=== PATIENT | female | born 1945 ===

== ENCOUNTER 2017-02-14 08:11 | Emergency (ER) | payer MEDICARE, OTHER ==
[2017-02-14 08:18] VITALS: BP 139/83; PULSE 82; TEMP 97; O2SAT 96
[2017-02-14 08:19] VITALS: BMI 31.8
[2017-02-14 08:35] VITALS: RESP 18
[2017-02-14] MEDS ORDERED: Albuterol 0.083% Inhal Sol (2.5 mg/3 mL) UD INH STA (08:55)
--- NOTE | 2017-02-14 08:58 | ED PDOC ---
HPI: CCC, URI, Sore Throat Time Seen by Provider: 02/14/17 08:38 Chief Complaint (Nursing): Cough, Cold, Congestion History Per: Patient, Concrete Rod Buster (armenian speaking nurse sadiq) History/Exam Limitations: no limitations Onset/Duration Of Symptoms: Days (3), Gradual Current Symptoms Are (Timing): Still Present Location Of Pain: None Sick Contacts (Context): None Associated Symptoms: Cough. denies: Fever, Chills, Sore Throat, Sputum, Neck Pain, Sinus Drainage, Myalgias, Nasal Congestion, Nausea, Vomiting, Diarrhea Ear Symptoms: Bilateral: None Severity: Mild Additional History Per: Patient Additional Complaint(s): ED c/o dry cough x3 days. Reports taking Robitussin without relief. no f/c/ travel or sick contacts. no cp Past Medical History Reviewed: Historical Data, Nursing Documentation Vital Signs: Last Vital Signs Temp 97 F L 02/14/17 08:18 Pulse 82 02/14/17 08:18 Resp 18 02/14/17 08:32 BP 139/83 02/14/17 08:18 Pulse Ox 96 02/14/17 10:15 - Medical History PMH: Arthritis, Diabetes, Fractures (left hand), HTN, Osteoporosis - Family History Family History: States: Unknown Family Hx - Living Arrangements Living Arrangements: With Family - Social History Current smoker - smoking cessation education provided: No - Home Medications Home Medications: Ambulatory Orders Medication Instructions Recorded Meclizine [Meclizine*] 25 mg PO Q8 #15 tab 04/12/16 Ondansetron [Zofran] 4 mg PO Q8H #10 tab 04/12/16 Albuterol HFA [Ventolin HFA 90 1 puff IH [id number] PRN #60 puff 02/14/17 mcg/actuation (8 g)] Azithromycin 250 mg PO DAILY #3 tablet 02/14/17 Loratadine [Claritin] 10 mg PO DAILY #30 tab 02/14/17 - Allergies Allergies/Adverse Reactions: Allergies Allergy/AdvReac Type Severity Reaction Status Date / Time No Known Allergies Allergy Verified 02/14/17 08:30 Review of Systems ROS Statement: Except As Marked, All Systems Reviewed And Found Negative Constitutional: Negative for: Fever, Chills Cardiovascular: Negative for: Chest Pain, Palpitations Respiratory: Positive for: Cough. Negative for: Shortness of Breath, SOB with Exertion, Pleuritic Pain, Sputum Gastrointestinal: Negative for: Nausea, Vomiting, Abdominal Pain, Diarrhea Physical Exam - Reviewed Nursing Documentation Reviewed: Yes Vital Signs Reviewed: Yes - Physical Exam Appears: Positive for: No Acute Distress, Uncomfortable Head Exam: Positive for: ATRAUMATIC, NORMAL INSPECTION, NORMOCEPHALIC Eye Exam: Positive for: Normal appearance Neck: Positive for: Normal, Painless ROM, Supple Cardiovascular/Chest: Positive for: Regular Rate, Rhythm, Chest Non Tender. Negative for: Edema, Gallop, Murmur, Bradycardia, Tachycardia Respiratory: Positive for: Normal Breath Sounds, Rhonchi (mild scattered). Negative for: Decreased Breath Sounds, Accessory Muscle Use, Crackles, Rales, Stridor, Wheezing Gastrointestinal/Abdominal: Positive for: Normal Exam, Bowel Sounds, Soft. Negative for: Tenderness Extremity: Positive for: Normal ROM. Negative for: Tenderness, Pedal Edema, Calf Tenderness, Deformity, Swelling Neurologic/Psych: Positive for: Alert, jockey's agent II-XII, Oriented. Negative for: Motor/Sensory Deficits - ECG O2 Sat by Pulse Oximetry: 96 Pulse Ox Interpretation: Normal - Radiology X-Ray: Interpreted by Ms X-Ray Interpretation: No Acute Disease - Progress ED Course And Treament: sx improved with albuterol will treat for bronchitis, cxr with mild interstitial changes but unchanged pt agree's with plan. translated via Tongan speaking nurse sadiq Re-evaluation Time: 10:09 Condition: Improved Disposition - Clinical Impression Clinical Impression: Cough - Patient ED Disposition Is Patient to be Admitted: No Counseled Patient/Family Regarding: Studies Performed, Diagnosis, Need For Followup, Rx Given - Disposition Referrals: [facility] [Outside] (or pmd for 2 days) Disposition: Routine/Home Disposition Time: 10:00 Condition: GOOD Prescriptions: Albuterol HFA [Ventolin HFA 90 mcg/actuation (8 g)] 1 puff IH [id number] PRN #60 puff PRN Reason: Cough Azithromycin 250 mg PO DAILY #3 tablet Loratadine [Claritin] 10 mg PO DAILY #30 tab Instructions: Acute Cough (ED) Forms: [employer] (Polish)
[2017-02-14] MEDS ORDERED: Albuterol 0.083% Inhal Sol (2.5 mg/3 mL) UD ONE (09:17)
--- NOTE | 2017-02-14 10:04 | RAD ---
HISTORY: cough COMPARISON: 04/12/2016. TECHNIQUE: Chest PA and lateral FINDINGS: LUNGS: No suspect minimal atelectasis and or scarring changes left lung base. PLEURA: No significant pleural effusion identified. No pneumothorax apparent. CARDIOVASCULAR: Normal. OSSEOUS STRUCTURES: Mild multilevel degenerative spondylosis of the thoracic spine. Degenerative changes both acromioclavicular joints. VISUALIZED UPPER ABDOMEN: Normal. OTHER FINDINGS: None. IMPRESSION: No active disease.
== END 2017-02-14 10:48 | disposition home or self-care (01) ==
LOC: H.ER 08:11
DX: R05 Cough (principal); E11.9 Type 2 diabetes mellitus without complications; I10 Essential (primary) hypertension; M81.0 Age-related osteoporosis without current pathological fracture

== ENCOUNTER 2017-03-20 13:09 | Emergency (ER) | payer MEDICARE, OTHER ==
[2017-03-20 13:09] VITALS: BMI 31.8
[2017-03-20 13:19] VITALS: BP 178/104; PULSE 78; RESP 18; TEMP 97; O2SAT 99
[2017-03-20] MEDS ORDERED: Naproxen 500 MG TAB PO STA (13:36)
--- NOTE | 2017-03-20 14:31 | RAD ---
PROCEDURE: Radiographs of the Lumbar Spine. HISTORY: back pain s/p trip and fall COMPARISON: No prior. FINDINGS: BONES: Normal alignment. No listhesis. No fracture. DISC SPACES: Disc spaces maintained. They are bridging osteophytes about the anterior aspect of the L1-2, L2-3 and L3-4 disc spaces. OTHER FINDINGS: None. IMPRESSION: No fracture/dislocation.
--- NOTE | 2017-03-20 15:47 | ED PDOC ---
HPI: Back Time Seen by Provider: 03/20/17 13:19 Chief Complaint (Nursing): Back Pain Chief Complaint (Provider): Back Pain History Per: Patient History/Exam Limitations: no limitations Onset/Duration Of Symptoms: Days (x1) Current Symptoms Are (Timing): Still Present Additional Complaint(s): Robyn is a 71 y/o female who presents to the ED for evaluation of back pain after sustaining a fall today. States that she tripped over a shoe, slipped and fell onto her left side. Now reports pain to left lower back. No medications were taken for pain relief today. No numbness, tingling, or urinary problems. PMD: Dejah Anaya Past Medical History Reviewed: Historical Data, Nursing Documentation, Vital Signs Vital Signs: Last Vital Signs Temp 97 F L 03/20/17 13:13 Pulse 78 03/20/17 13:13 Resp 18 03/20/17 13:13 BP 178/104 H 03/20/17 13:13 Pulse Ox 99 03/20/17 13:13 - Medical History PMH: Arthritis, Diabetes, Fractures (left hand), HTN, Osteoporosis - Surgical History Surgical History: No Surg Hx - Family History Family History: States: Unknown Family Hx - Social History Current smoker - smoking cessation education provided: No Alcohol: None Drugs: Denies - Home Medications Home Medications: Ambulatory Orders Medication Instructions Recorded Meclizine [Meclizine*] 25 mg PO Q8 #15 tab 04/12/16 Ondansetron [Zofran] 4 mg PO Q8H #10 tab 04/12/16 Albuterol HFA [Ventolin HFA 90 1 puff IH [id number] PRN #60 puff 02/14/17 mcg/actuation (8 g)] Azithromycin 250 mg PO DAILY #3 tablet 02/14/17 Loratadine [Claritin] 10 mg PO DAILY #30 tab 02/14/17 - Allergies Allergies/Adverse Reactions: Allergies Allergy/AdvReac Type Severity Reaction Status Date / Time No Known Allergies Allergy Verified 02/14/17 08:30 Review of Systems ROS Statement: Except As Marked, All Systems Reviewed And Found Negative Genitourinary Female: Negative for: Incontinence Musculoskeletal: Positive for: Back Pain (left, lower) Neurological: Negative for: Weakness, Numbness Physical Exam - Reviewed Nursing Documentation Reviewed: Yes Vital Signs Reviewed: Yes - Physical Exam Appears: Positive for: Well, Non-toxic, No Acute Distress Head Exam: Positive for: ATRAUMATIC, NORMAL INSPECTION, NORMOCEPHALIC Skin: Positive for: Normal Color, Warm, Dry Eye Exam: Positive for: Normal appearance Neck: Positive for: Normal Cardiovascular/Chest: Positive for: Regular Rate, Rhythm. Negative for: Murmur Respiratory: Positive for: Normal Breath Sounds. Negative for: Respiratory Distress Back: Positive for: Normal Inspection, Other (Generalized tenderness to lower back) Extremity: Positive for: Normal ROM. Negative for: Pedal Edema, Deformity Neurologic/Psych: Positive for: Alert, Oriented - ECG O2 Sat by Pulse Oximetry: 99 (RA) Pulse Ox Interpretation: Normal Medical Decision Making Medical Decision Making: Time: 13:36 Initial Plan: --Naproxen 500 mg PO --X-Ray LS Spine Time: 14:29 X-RAY LS Spine FINDINGS: BONES: Normal alignment. No listhesis. No fracture. DISC SPACES: Disc spaces maintained. They are bridging osteophytes about the anterior aspect of the L1-2, L2-3 and L3-4 disc spaces. OTHER FINDINGS: None. IMPRESSION: No fracture/dislocation. Clinical Impression: Back pain Upon provider reevaluation patient is medically stable, and requires no further treatment in the ED at this time. Patient will be discharged home. Counseling was provided and all questions were answered regarding diagnosis and need for follow up with PMD. There is agreement to discharge plan. Return if symptoms persist or worsen. Scribe Attestation: Documented by Shira Friedman, acting as a scribe for Manju Morales PA-C Provider Scribe Attestation: All medical record entries made by the Scribe were at my direction and personally dictated by me. I have reviewed the chart and agree that the record accurately reflects my personal performance of the history, physical exam, medical decision making, and the department course for this patient. I have also personally directed, reviewed, and agree with the discharge instructions and disposition. Disposition - Clinical Impression Clinical Impression: Back pain - Patient ED Disposition Is Patient to be Admitted: No Counseled Patient/Family Regarding: Studies Performed, Diagnosis, Need For Followup - Disposition Disposition: Routine/Home Disposition Time: 15:06 Condition: STABLE Instructions: Back Pain (ED) Forms: [facility] (Indonesian) Print Language: GHANAIAN
== END 2017-03-20 15:07 | disposition home or self-care (01) ==
LOC: H.ER 13:09
DX: M54.9 Dorsalgia, unspecified (principal); W19.XXXA Unspecified fall, initial encounter; Y92.89 Other specified places as the place of occurrence of the external cause

== ENCOUNTER 2018-10-21 17:15 | Emergency (ER) | payer MEDICARE, OTHER ==
[2018-10-21 17:15] VITALS: BMI 31.8
[2018-10-21 17:24] VITALS: RESP 18; O2SAT 97
[2018-10-21] MEDS ORDERED: Albuterol-Ipratrop 3 mg / 0.5 (3 ml) UD INH STA (17:40)
[2018-10-21] MEDS ORDERED: Albuterol-Ipratrop 3 mg / 0.5 (3 ml) UD ONE (18:07)
--- NOTE | 2018-10-21 18:34 | RAD ---
Date of service: 10/21/2018 HISTORY: cough COMPARISON: No prior. TECHNIQUE: Chest PA and lateral views FINDINGS: LUNGS: No active pulmonary disease. PLEURA: No significant pleural effusion identified. No pneumothorax apparent. CARDIOVASCULAR: Calcific atherosclerotic changes are seen related to the thoracic aorta. Borderline cardiomegaly stable. No pulmonary vascular congestion. OSSEOUS STRUCTURES: No significant abnormalities. VISUALIZED UPPER ABDOMEN: Normal. OTHER FINDINGS: None. IMPRESSION: No interval acute cardiopulmonary disease appreciated. Borderline cardiomegaly reiterated.
[2018-10-21 18:36] LABS: BASO % 0.3 % (0.0-2.0); EOS # 0.1 K/uL (0.0-0.7); EOS % 1.5 % (0.0-4.0); LYMPH # 2.3 K/uL (1.0-4.3); LYMPH % 32.5 % (20.0-40.0); MEAN CELL VOLUME 89.9 fl (81.0-99.0); MEAN CORPUSCULAR HEMOGLOBIN 29.8 pg (27.0-31.0); MEAN CORPUSCULAR HGB CONC 33.2 g/dL (33.0-37.0); MEAN PLATELET VOLUME 10.1 fl (7.2-11.7); MONO # 0.6 K/uL (0.0-0.8); MONO % 8.2 % (0.0-10.0); NEUT % 57.5 % (50.0-75.0); NRBC % 0.2 % (0.0-0.0); RBC 4.68 Mil/uL (3.80-5.20)
[2018-10-21 18:46] LABS: BLOOD UREA NITROGEN 25 mg/dl (7-17); CALCIUM 9.7 mg/dL (8.4-10.2); GFR NON-AFRICAN AMERICAN > 60
--- NOTE | 2018-10-21 19:02 | ED PDOC ---
HPI: Back Time Seen by Provider: 10/21/18 17:32 Chief Complaint (Nursing): Back Pain Chief Complaint (Provider): Back Pain History Per: Patient History/Exam Limitations: no limitations Onset/Duration Of Symptoms: Days Current Symptoms Are (Timing): Still Present Additional Complaint(s): 73 y/o female witha PMHx of HTN and DM presents to the ED for evaluation of right sided back pain, onset last night. Patient reports of feeling like the pain is located in her right lung. Patient states pain is exacerbated by deep breaths. Otherwise, patient denies history of Asthma, cough, chest pain, wheezing, fever, symptoms on the left side. PMD: Dejah Anaya Past Medical History Reviewed: Historical Data, Nursing Documentation, Vital Signs Vital Signs: Last Vital Signs Temp 97.9 F 10/21/18 17:19 Pulse 88 10/21/18 17:19 Resp 18 10/21/18 17:19 BP 176/81 H 10/21/18 17:19 Pulse Ox 97 10/21/18 17:19 Primary Care Provider: Dejah Anaya - Medical History PMH: Arthritis, Diabetes, Fractures (left hand), HTN, Osteoporosis - Surgical History Surgical History: No Surg Hx - Family History Family History: States: Unknown Family Hx - Home Medications Home Medications: Ambulatory Orders Medication Instructions Recorded Meclizine [Meclizine*] 25 mg PO Q8 #15 tab 04/12/16 Ondansetron [Zofran] 4 mg PO Q8H #10 tab 04/12/16 Albuterol HFA [Ventolin HFA 90 1 puff IH [id number] PRN #60 puff 02/14/17 mcg/actuation (8 g)] Azithromycin 250 mg PO DAILY #3 tablet 02/14/17 Loratadine [Claritin] 10 mg PO DAILY #30 tab 02/14/17 - Allergies Allergies/Adverse Reactions: Allergies Allergy/AdvReac Type Severity Reaction Status Date / Time No Known Allergies Allergy Verified 02/14/17 08:30 Review of Systems ROS Statement: Except As Marked, All Systems Reviewed And Found Negative Constitutional: Negative for: Fever Cardiovascular: Negative for: Chest Pain Respiratory: Negative for: Cough, Wheezing Musculoskeletal: Positive for: Back Pain Physical Exam - Reviewed Nursing Documentation Reviewed: Yes Vital Signs Reviewed: Yes - Physical Exam Appears: Positive for: No Acute Distress Head Exam: Positive for: ATRAUMATIC, NORMOCEPHALIC Skin: Positive for: Normal Color, Warm, Dry Eye Exam: Positive for: Normal appearance, EOMI, PERRL ENT: Positive for: Normal ENT Inspection Neck: Positive for: Normal, Painless ROM, Supple Cardiovascular/Chest: Positive for: Regular Rate, Rhythm. Negative for: Murmur Respiratory: Positive for: Normal Breath Sounds. Negative for: Wheezing, Respiratory Distress Gastrointestinal/Abdominal: Positive for: Normal Exam, Soft. Negative for: Tenderness Back: Positive for: Normal Inspection. Negative for: L CVA Tenderness, R CVA Tenderness, Vertebral Tenderness Extremity: Positive for: Normal ROM. Negative for: Pedal Edema, Deformity Neurological/Psych: Positive for: Awake, Alert, Oriented (x3). Negative for: Motor/Sensory Deficits - Laboratory Results Result Diagrams: 10/21/18 18:20 10/21/18 18:20 - ECG O2 Sat by Pulse Oximetry: 97 (RA) Pulse Ox Interpretation: Normal Medical Decision Making Medical Decision Making: Time: 1740 A/P: Workup for right sided back pain that worsens with respirations. -- Rule out lung pathology. -- Vitals within normal limits -- EKG is unremarkable -- Labs, CXR -- One Duoneb for symptomatic treatment. -- Re-assess patient -- BMP -- Troponin I -- CBC with Differentials -- CXR Two Views -- Albuterol 3 ml INH -- Toradol 15 mg IVP 1900 Labs and xray unremarkable. Pt feeling better. To be discharged home and will follow up with primary medical doctor. Return parameters discussed. Scribe Attestation: Documented by Marissa Lopez, acting as a scribe Hardik Alcaraz MD Provider Scribe Attestation: All medical record entries made by the Scribe were at my direction and personally dictated by me. I have reviewed the chart and agree that the record accurately reflects my personal performance of the history, physical exam, medical decision making, and the department course for this patient. I have also personally directed, reviewed, and agree with the discharge instructions and disposition. Disposition - Clinical Impression Clinical Impression: Cough, Back pain - Disposition Disposition: Routine/Home Disposition Time: 19:00 Condition: STABLE Additional Instructions: Take Motrin or Tylenol for pain. Follow up with primary medical doctor within one week. Return to the emergency department if symptoms worsen or if new symptoms develop. Instructions: Cough in Adults, Upper Back Pain (DC) Forms: [facility] (Mongolian), [facility] (Equ[place]an) Print Language: BULGARIAN
[2018-10-21 19:30] VITALS: BP 141/73; PULSE 69; TEMP 97.6
== END 2018-10-21 19:25 | disposition home or self-care (01) ==
LOC: H.ER 17:15
DX: R05 Cough (principal); M54.9 Dorsalgia, unspecified
CPT/HCPCS: 71046; 80048; 84484; 85025; 94640; 96374; 99284; J1885